=== PATIENT | female | born 1985 | race Caucasian/White ===

== ENCOUNTER 2017-05-25 13:02 | Emergency (ER) | payer OTHER ==
[~2017-05-25] VITALS: Ht 177.8 cm; Wt 59.0 kg
[~2017-05-25 13:02] MED LIST: CIPRO500 MG PO; SMZ-TMP DS 800-1 TAB PO; URIN D.S. TABLE1 TAB PO; YAZ 28 TABLET1 TAB PO
== END 2017-05-25 19:39 | disposition home or self-care (01) ==
LOC: ER 13:02
DX: N39.0 Urinary tract infection, site not specified (principal)

== ENCOUNTER → 2017-08-17 | Emergency (ER) | payer OTHER ==
[~2017-08-17] VITALS: Ht 175.3 cm; Wt 59.0 kg
[~2017-08-17] MED LIST changes: +BACTRIM DS TAB1 EACH PO; +LUNESTA1 MG PO; +URIN D.S. TABL1 EACH PO; +VISTARIL25 MG PO
== END | disposition home or self-care (01) ==
LOC: ER 08:47
DX: N39.0 Urinary tract infection, site not specified (principal); G47.00 Insomnia, unspecified

== ENCOUNTER → 2017-08-24 | Emergency (ER) | payer OTHER ==
[~2017-08-24] VITALS: Ht 177.8 cm; Wt 61.2 kg
== END | disposition left against medical advice (07) ==
LOC: ER 08:01
DX: K59.09 Other constipation (principal); R10.813 Right lower quadrant abdominal tenderness